=== PATIENT | female | born 1950 | race Caucasian/White ===

== ENCOUNTER 2016-12-11 07:13 | Day surgery (SDC) | payer BC ==
[2016-12-09 12:47] VITALS: BMI 34.7
[~2016-12-11 07:13] MED LIST: LACTATED RINGERS 1,000 ML IV SCH; LIDOCAINE 1% 20 ML VIAL (10MG/ML) FOR IV START INTRADERMA PRN
[2016-12-11 07:25] VITALS: RESP 16; TEMP 98.3
[2016-12-11] MEDS ORDERED: PROPOFOL 10 MG/ML 20 ML VIAL IV ONE (07:34)
[2016-12-11] MEDS ORDERED: LIDOCAINE 1% INJ 10MG/ML (20 ML MDV) ONE (07:34)
--- NOTE | 2016-12-11 07:51 | P.PCN ---
Date of Procedure: 12/11/16 Preoperative Diagnosis: Postoperative Diagnosis: Procedure(s) Performed: BRIEF HISTORY: Patient is a 66-year-old pleasant white female, scheduled for an elective colonoscopy as a part of screening for colorectal neoplasia. She has remote history of ulcerative colitis diagnosed at 45 years ago but has been clinical remission for the last 30 years. Presently on no maintenance medications. PROCEDURE PERFORMED: Colonoscopy. PREOPERATIVE DIAGNOSIS: Screening for colon cancer. IV sedation per Anesthesia. PROCEDURE: After informed consent was obtained, the patient, was brought into the endoscopy unit. IV sedation was administered by Anesthesia under continuous monitoring. Digital rectal examination was normal. Initially the Olympus CF- 160 flexible video colonoscope was then inserted in the rectum, gradually advanced into the cecum without any difficulty. Careful examination was performed as the scope was gradually being withdrawn. Ileocecal valve and the appendiceal orifice were visualized and appeared normal. Prep was excellent. Mucosa of the cecum, ascending colon, transverse colon, descending colon, sigmoid colon, and rectum appeared normal. Retroflexion was performed in the rectum and no lesions were seen. The patient tolerated the procedure well. IMPRESSION: Normal-appearing colon from rectum to cecum with no evidence of colitis or colorectal neoplasia. RECOMMENDATIONS: Findings of this examination were discussed with the patient as well as a family. She was advised to have a repeat screening colonoscopy in 5 years because of history of ulcerative colitis. Implants: Indications for Procedure: Operative Findings: Description of Procedure:
[2016-12-11 08:12] VITALS: BP 121/75; PULSE 74
== END 2016-12-11 08:26 | disposition home or self-care (01) ==
LOC: ORWHC2ENDO 07:13
PROVIDERS: ATTEND Internal Medicine Gastroenterology
DX: Z12.11 Encounter for screening for malignant neoplasm of colon (principal); I10 Essential (primary) hypertension; K21.9 Gastro-esophageal reflux disease without esophagitis; E07.9 Disorder of thyroid, unspecified; Z79.899 Other long term (current) drug therapy
CPT/HCPCS: J2001; J2704; G0121

== ENCOUNTER → 2020-09-19 | Outpatient (CLI) | payer MEDICARE, BC | END | disposition home or self-care (01) | LOC: LABPAT 13:32 | PROVIDERS: ATTEND Orthopaedic Surgery | DX: Z01.818 Encounter for other preprocedural examination (principal); M16.11 Unilateral primary osteoarthritis, right hip | CPT/HCPCS: 36415; 86850; 86900; 86901 ==

== ENCOUNTER 2020-09-23 05:43 | Day surgery (SDC) | payer MEDICARE, BC ==
[2020-09-16 15:47] VITALS: BMI 32.3
[~2020-09-23 05:43] MED LIST changes: +ACETAMINOPHEN TAB 500 MG TAB PO PRN; +GABAPENTIN 300 MG CAP PO PRN; -LACTATED RINGERS 1,000 ML IV SCH; -LIDOCAINE 1% 20 ML VIAL (10MG/ML) FOR IV START INTRADERMA PRN; +MELOXICAM 7.5 MG TAB PO PRN; +TRANEXAMIC ACID 1,000 MG in SODIUM CHLORIDE 0.9% 100 ML IVPB PRN
[2020-09-23] MEDS ORDERED: ONDANSETRON 4 MG/2 ML VIAL ONE ×2 (05:45→09:48)
[2020-09-23 06:20] VITALS: RESP 16
[2020-09-23] MEDS: LACTATED RINGERS 1,000 ML IV SCH ×2 (06:20→12:50)
[2020-09-23] MEDS ORDERED: LIDOCAINE 1% INJ 10MG/ML (20 ML MDV) ONE (06:56)
[2020-09-23] MEDS ORDERED: SODIUM CHLORIDE 0.9% 100 ML BAG ONE (06:56)
[2020-09-23] MEDS ORDERED: TRANEXAMIC ACID 1,000 MG/10 ML VIAL ONE (06:56)
[2020-09-23] MEDS ORDERED: SODIUM CHLORIDE 0.9% IRRIG 1,000 ML BTL IRRIGATION ONE (06:56)
[2020-09-23] MEDS ORDERED: PROPOFOL 10 MG/ML 20 ML VIAL IV ONE (06:56)
[2020-09-23] MEDS ORDERED: ROCURONIUM 10 MG/ML (5 ML VIAL) IV ONE (06:56)
[2020-09-23] MEDS ORDERED: HEPARIN SODIUM,PORCINE 10,000 UNIT/ML 1 ML VIAL ONE (06:56)
[2020-09-23] MEDS ORDERED: fentaNYL (PF) 50 MCG/ML 2 ML AMP ONE (06:56)
[2020-09-23] MEDS ORDERED: KETOROLAC 15 MG/ML 1 ML VIAL ONE (06:56)
[2020-09-23] MEDS ORDERED: NEOSTIGMINE 1 MG/ML 10 ML VIAL ONE (06:56)
[2020-09-23] MEDS ORDERED: HYDROmorphone (PF) 1 MG/ML ONE (06:56)
[2020-09-23] MEDS ORDERED: MIDAZOLAM 2 MG/2 ML VIAL ONE (06:56)
[2020-09-23] MEDS ORDERED: HYDROmorphone 0.2 MG/1 ML SYRINGE IVP PRN (07:04)
[2020-09-23] MEDS ORDERED: NALOXONE 0.4 MG/ML 1 ML VIAL IV PRN (07:04)
[2020-09-23] MEDS ORDERED: HYDROmorphone 0.5 MG/0.5 ML SYRINGE IVP PRN ×2 (07:04)
[2020-09-23] MEDS ORDERED: HYDROcodone/APAP 7.5-325MG 1 EACH TAB PO PRN ×2 (07:06)
[2020-09-23] MEDS ORDERED: SODIUM CHLORIDE 0.9% 1,000 ML IV SCH (07:15)
[2020-09-23] MEDS ORDERED: ceFAZolin 3,000 MG in SODIUM CHLORIDE 0.9% IRRIGATIO 3,000 ML IRRIGATION ONE (07:22)
[2020-09-23] MEDS: ROPIVACAINE/EPI/CLONIDINE/KET 50 ML SYRINGE MISCELLANE PRN ×2 (07:36→07:59)
--- NOTE | 2020-09-23 08:23 | P.OP ---
Date of Procedure: 09/23/20 Preoperative Diagnosis: Severe osteoarthritis right hip Postoperative Diagnosis: Severe osteoarthritis right hip Procedure(s) Performed: Right total hip arthroplasty direct anterior approach Implants: [employer] Polarstem standard size 5 [employer] R3, 3 hole hemispherical acetabular shell, 52 mm [employer] Reflection 6.5 mm cancellus screw, 20 mm 2 [employer] R3, XLPE 20 acetabular liner [employer] Oxinium femoral head 36 m, -3 All components were press-fit. The articulation is Oxinium on polyethylene. Anesthesia: GETA Surgeon: Nitin Klein Choir Singer #1: Melanie Santiago Estimated Blood Loss (ml): 200 (65 mL returned with Cell Saver) Pathology: other (Femoral head) Condition: stable Disposition: PACU Indications for Procedure: After failure of conservative treatment we discussed the surgical and nonsurgical treatment options at length. Patient wishes to proceed with a total hip arthroplasty with a direct anterior approach. Complications specific to this procedure were discussed at length, including but not limited to infection, leg length discrepancy, dislocation, nerve injury, and fracture. Covid-19 was also discussed at length with the patient, and they are aware of the current policies and procedures. The patient was given the option of delaying surgery, but they elect to proceed knowing these risks. Patient is aware of all these complications and informed consent was obtained Operative Findings: The operative findings are consistent with severe osteoarthritis of the right hip Description of Procedure: Patient was seen and evaluated in the preoperative area and the consent was reviewed. The operative site was marked with a skin marker. The patient was then brought to the operating room and given preoperative antibiotics intravenously. 1 g of Tranexamic acid was also given intravenously. A general anesthetic was administered by the anesthesia department. The patient was then placed on the Wilberforce table with the bony prominences well-padded. The hip area was then prepped with a ChloraPrep solution and draped in the usual sterile fashion. A universal timeout was then performed, which confirmed the patient's name, surgical site, ALLERGIES, and procedure being performed on the consent. Next the incision site was located at 1 cm distall to the anterior superior iliac spine along the flexion crease of the right hip. The skin and subcutaneous tissues were sharply incised. Incision was carefully dissected down to the fascia overlying the tensor fascia suni muscle. This fascia was then incised in line with the incision. Care was taken to stay laterally in order to avoid injuring the lateral femoral cutaneous nerve. Next, using blunt finger dissection, the tensor fascia suni muscle was dissected off its investing fascia. The muscle was then carefully retracted laterally with a cobra retractor over the lateral neck of the femur. Next, the circumflex vessels were identified and cauterized using the AquaMantis device. The anterior hip capsule was then exposed. The capsule was then opened and an inverted T fashion. Cobra retractors were then placed intracapsularly. The retractors were maintained intracapsular throughout the procedure. The proximal femur was then visualized. A small amount of traction was placed on the leg. The femoral neck was then osteotomized appropriate level above the lesser trochanter. A small wedge of bone was then removed from the remaining femoral head. Next, using a corkscrew the femoral head was removed from the acetabulum. On gross visual inspection, the femoral head had complete loss of articular cartilage and multiple periarticular osteophytes. The femoral head was then measured. Attention was then turned to the acetabulum. The acetabulum was exposed and any remaining labrum was excised. Sequential reaming of the acetabulum was performed using fluoroscopic guidance until there was a good bed of bleeding cancellus bone. When the appropriate size was reached, a trial was then placed. The position and fit of the trial was checked with fluoroscopy. The trial was then removed. Then, using fluoroscopic guidance, the final implant was impacted at 20 of anteversion and 40 of abduction, and fully seated in the acetabulum. 2 screws were then placed in the acetabulum. Again fluoroscopy was used to check position of the screws. Next, the liner was then impacted, with a 20 elevated liner located in the anterior superior quadrant. Component locking was confirmed. Attention was then directed to the femur. With the aid of the Wilberforce table, the femur was externally rotated to approximately 130, extended, and adducted under the opposite leg. A side hook was then placed under the proximal femur, and the side hook elevator was used to elevate the proximal femur while releasing the capsule. Retractors were then placed. A capsular release was performed, as well as a release of the conjoined tendon, which afforded excellent visualization of the proximal femur. Next, a box osteotome was used to lateralize the proximal femur. A steam box hand was then used to locate the femoral canal. Sequential broaching was then performed with appropriate size which afforded excellent fixation in the proximal femur. A trial was then placed with appropriate head and neck, and the hip was gently reduced with the aid of the Wilberforce table. Fluoroscopy was then used to check position of the components, as well as to ensure equal leg lengths. The hip was then gently dislocated and the trials were then removed. Final implants were then impacted and the hip was again reduced. Final fluoroscopic x-rays confirmed that the components were in anatomic position, as well as equal leg lengths. The hip was also taken through range of motion, and found to be stable. The hip was then copiously irrigated with antibiotic solution with pulsatile lavage. The hip was then irrigated with Irrisept solution. The soft tissues were then injected with a ropivacaine solution, which consisted of 246.25 mg of ropivacaine, 0.5 mg of epinephrine, 30 mg of Toradol, 80 g of clonidine, and 48.45 mL of sterile water, for a total of 100 mL of fluid injected. A second dose of 1 g of Tranexamic acid was also given intravenously. Any blood collected by Cell Saver was then returned to the patient at this time. The fascia was then closed with 2-0 strata fix suture. The subcutaneous tissue was closed with 3-0 Vicryl. The subcuticular tissue was closed with 3-0 strata fix suture. The skin was then closed with Exofin skin glue. After the glue and dried, and Optifoam silver impregnated dressing was applied. The patient was then transferred to the recovery room in stable condition. The child care assistant YAZMIN Vega was required due to the complexity of surgery, and the need for skilled surgical specialist for positioning, draping, exposure, retraction, and closure of the wound.
[2020-09-23 08:37] VITALS: TEMP 98.2
[2020-09-23] MEDS ORDERED: ONDANSETRON 4 MG/2 ML VIAL IVP ONE (09:50)
--- NOTE | 2020-09-23 10:16 | XR ---
Right hip HISTORY: Status post right hip arthroplasty Single frontal view of the right hip Patient is status post right hip arthroplasty. There is anatomic alignment. Lucency is present in the soft tissues. IMPRESSION: Orthopedic follow-up.
--- NOTE | 2020-09-23 11:04 | XR ---
Limited right hip, fluoroscopy history: Hip replacement 20 seconds fluoroscopy time supplied to the referring clinician, 2 intraoperative images document the procedure
[2020-09-23 14:31] VITALS: BP 116/78; PULSE 78
== END 2020-09-23 15:00 | disposition home health service (06) ==
LOC: OR 05:43
PROVIDERS: ATTEND Orthopaedic Surgery
DX: M16.11 Unilateral primary osteoarthritis, right hip (principal); I10 Essential (primary) hypertension; E07.9 Disorder of thyroid, unspecified; E78.5 Hyperlipidemia, unspecified; K21.9 Gastro-esophageal reflux disease without esophagitis; Z79.890 Hormone replacement therapy; Z79.899 Other long term (current) drug therapy; Z87.891 Personal history of nicotine dependence; Z88.8 Allergy status to other drugs, medicaments and biological substances
CPT/HCPCS: 27130; 97116; 97161; 86891; 88300; 73501; C1776; J2250; J1644; J2710; J0690 ×2; J2405; J2001; J3010; J1170; J1885; J2704; 36415; 86850; 86900; 86901

== ENCOUNTER → 2021-10-13 | Outpatient (CLI) | payer MEDICARE, BC ==
[2021-10-13 13:16] VITALS: BP 149/76; PULSE 108; RESP 16; TEMP 97.7; BMI 34.7
--- NOTE | 2022-01-09 10:44 | P.HPBAR ---
Bariatric H&P - History & Physicial H&P Date: 10/13/21 History & Physicial: Visit/CC: gastric sleeve f/u Patient initial contact: Initial weight: Initial weight in pounds: Height: 5 ft 9 in Initial BMI: Last weight: Current weight: 106.685 kg Current weight in pounds: 235.20 Current BMI: 34.7 [place] body weight (based on NIH guidelines): 65.771 kg Excess body weight loss: The patient is a 71 year-old F who presents for Bariatric Assessment. Patient presents today for bariatric follow-up. Her weight has been stable. She had some mild issues with GERD. She denies any dysphagia Past Medical History Past Medical History: GERD/Reflux, Hyperlipidemia, Hypertension, Osteoarthritis (OA), Thyroid Disorder History of Any Multi-Drug Resistant Organisms: None Reported Past Surgical History: Bariatric Surgery, Section, Hysterectomy, Joint Replacement Additional Past Surgical History / Comment(s): GASTRIC SLEEVE, RT TOTAL KNEE, Rt total hip, rt cataract Past Anesthesia/Blood Transfusion Reactions: No Reported Reaction Past Psychological History: No Psychological Hx Reported Smoking Status: Former smoker Past Alcohol Use History: Occasional Additional Past Alcohol Use History / Comment(s): SMOKED 15 YEARS, 1/2 PPD, QUIT 1996. Past Drug Use History: None Reported - Past Family History Mother Family Medical History: No Reported History Surgical - Exam Vital Signs Temp Pulse Resp BP 97.7 F 108 H 16 149/76 10/13/21 13:13 10/13/21 13:13 10/13/21 13:13 10/13/21 13:13 - General well developed, well nourished - Eyes PERRL - ENT normal pinna - Neck no masses - Respiratory normal expansion - Cardiovascular Rhythm: regular - Abdomen Abdomen: soft, non tender Bariatric Assessment & Plan Plan: Resolving morbid obesity. Patient's GERD is minimal will be observed. She'll follow-up in 4 weeks. Bariatric Checklist Checklist: Plan: Checklist: EGD: 1. Hiatal hernia: 2. H. Pylori: HgbA1c: Vitamin D: Smoking: Former smoker Primary care physician referral: [facility] Psychiatry clearance: Cardiology clearance: Sleep study: Diet journal: VTE risk score: VTE risk level: Rehab needs at discharge:
== END ==
LOC: BARWHC3 13:00
PROVIDERS: ATTEND Surgery
DX: E66.01 Morbid (severe) obesity due to excess calories (principal); E78.5 Hyperlipidemia, unspecified; K21.9 Gastro-esophageal reflux disease without esophagitis; I10 Essential (primary) hypertension; M19.90 Unspecified osteoarthritis, unspecified site; Z98.84 Bariatric surgery status; Z87.891 Personal history of nicotine dependence; Z68.34 Body mass index [BMI] 34.0-34.9, adult; Z88.1 Allergy status to other antibiotic agents
CPT/HCPCS: 99211

== ENCOUNTER → 2021-10-15 | Outpatient (CLI) | payer MEDICARE, BC ==
--- NOTE | 2021-10-15 16:18 | FL ---
EXAMINATION TYPE: FL barium swallow DATE OF EXAM: 10/15/2021 COMPARISON: None HISTORY: Dysphagia and burning TECHNIQUE: A single contrast esophagram study is performed. FINDINGS: Contrast passes through the esophagus without intraluminal or extramural abnormality. Multiple tertiary contractions are evident within the distal esophagus. Moderate size hiatal hernia i s present. Some reflux into the hernia is evident during this exam. Fluoroscopy time: 52 seconds. Images: 18 IMPRESSIONS: 1. Moderate size hiatal hernia. Reflux and hiatal hernia is evident during the examination. 2. 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
== END | disposition home or self-care (01) ==
LOC: RADUSWWP 11:51
PROVIDERS: ATTEND Surgery
DX: K44.9 Diaphragmatic hernia without obstruction or gangrene (principal); K22.89 Other specified disease of esophagus; K21.9 Gastro-esophageal reflux disease without esophagitis
CPT/HCPCS: 74220

== ENCOUNTER 2021-10-16 09:11 | Day surgery (SDC) | payer MEDICARE, BC ==
[2021-10-15 09:44] VITALS: BMI 33.2
[2021-10-16] MEDS ORDERED: LIDOCAINE 1% (10MG/ML) FOR IV START INTRADERMA PRN (09:37)
[2021-10-16] MEDS ORDERED: LACTATED RINGERS 1,000 ML IV SCH (09:37)
[2021-10-16 09:50] VITALS: TEMP 98.3
[2021-10-16] MEDS ORDERED: LIDOCAINE 1% INJ 10MG/ML (20 ML MDV) ONE (10:51)
[2021-10-16] MEDS ORDERED: PROPOFOL 10 MG/ML 20 ML VIAL IV ONE (10:51)
--- NOTE | 2021-10-16 10:54 | P.GSHP ---
History of Present Illness H&P Date: 10/16/21 Chief Complaint: GERD Is a 8-year-old female who presents today for EGD. She's had issues with GERD. Past Medical History Past Medical History: GERD/Reflux, Hyperlipidemia, Hypertension, Osteoarthritis (OA), Thyroid Disorder History of Any Multi-Drug Resistant Organisms: None Reported Past Surgical History: Bariatric Surgery, Section, Hysterectomy, Joint Replacement Additional Past Surgical History / Comment(s): GASTRIC SLEEVE, RT TOTAL KNEE, Rt total hip, rt cataract, EGD, COLONOSCOPY Past Anesthesia/Blood Transfusion Reactions: No Reported Reaction Smoking Status: Former smoker - Past Family History Mother Family Medical History: No Reported History Medications and Allergies Home Medications Medication Instructions Recorded Confirmed Type Levothyroxine Sodium [Levo-T] 125 mcg PO DAILY 12/09/16 10/16/21 History Omeprazole [PriLOSEC] 40 mg PO HS 12/09/16 10/16/21 History Acetaminophen [Tylenol Arthritis] 650 mg PO DIRECTED PRN 09/16/20 10/16/21 History hydroCHLOROthiazide 50 mg PO DAILY 09/16/20 10/16/21 History Alpha Lipoic Acid 600 mg PO BID 10/13/21 10/16/21 History Cholecalciferol (Vitamin D3) 5,000 units PO DAILY 10/13/21 10/16/21 History [Vitamin D3 (125 MCG = 5,000 IU)] rOPINIRole HCL [Requip] 0.25 mg PO HS 10/13/21 10/16/21 History Amitriptyline HCl [Elavil] 50 mg PO HS 10/15/21 10/16/21 History Allergies Allergy/AdvReac Type Severity Reaction Status Date / Time nitrofurantoin Allergy red, hot Verified 10/16/21 09:51 [From Macrobid] skin and achy bones Surgical - Exam Vital Signs Temp Pulse Resp BP Pulse Ox 98.3 F 106 H 18 138/76 95 10/16/21 09:48 10/16/21 09:48 10/16/21 09:48 10/16/21 09:48 10/16/21 09:48 - General well developed, well nourished, no distress - Eyes PERRL - ENT normal pinna - Neck no masses - Respiratory normal expansion - Cardiovascular Rhythm: regular - Abdomen Abdomen: soft, non tender Assessment and Plan Assessment: GERD. We'll perform EGD
--- NOTE | 2021-10-16 11:01 | P.OP ---
Date of Procedure: 10/16/21 Preoperative Diagnosis: GERD Postoperative Diagnosis: Antral gastritis Large hiatal hernia Esophagitis Procedure(s) Performed: EGD Anesthesia: MAC Surgeon: Davidson Rojo Pathology: other (Antrum, esophagus) Condition: stable Disposition: PACU Description of Procedure: The patient's placed on the endoscopy table in the lateral position. She received IV sedation. The gastro-/oropharynx passed in the esophagus and stomach. Scope was then placed through the pylorus. The first and second portion duodenum appeared normal. Scope was then brought back the antrum this. Mildly inflamed. A biopsies performed. The scope was then retroflexed and remainder stomach appeared normal. There was a large hiatal hernia. The GE junction was at 37 cm. The distal esophagus appeared mildly inflamed. A biopsies performed. The proximal esophagus appeared normal. Scope withdrawn for patient.
[2021-10-16 11:15] VITALS: RESP 16
[2021-10-16 11:25] VITALS: BP 133/85; PULSE 96
== END 2021-10-16 11:55 | disposition home or self-care (01) ==
LOC: ORWHC2ENDO 09:11
PROVIDERS: ATTEND Surgery
DX: K21.9 Gastro-esophageal reflux disease without esophagitis (principal); K29.50 Unspecified chronic gastritis without bleeding; E78.5 Hyperlipidemia, unspecified; I10 Essential (primary) hypertension; M19.90 Unspecified osteoarthritis, unspecified site; E07.9 Disorder of thyroid, unspecified; Z98.84 Bariatric surgery status; Z87.891 Personal history of nicotine dependence; Z79.890 Hormone replacement therapy; Z79.899 Other long term (current) drug therapy; Z88.3 Allergy status to other anti-infective agents; Z98.891 History of uterine scar from previous surgery; Z90.710 Acquired absence of both cervix and uterus; Z96.651 Presence of right artificial knee joint; Z96.641 Presence of right artificial hip joint; Z98.41 Cataract extraction status, right eye
CPT/HCPCS: 88305; 88342; 43239; J2001; J2704

== ENCOUNTER → 2021-10-27 | Outpatient (CLI) | payer MEDICARE, BC ==
[2021-10-27 15:05] VITALS: BP 140/80; PULSE 80; TEMP 98.2; BMI 34.8
--- NOTE | 2021-10-27 15:40 | P.HPBAR ---
Bariatric H&P - History & Physicial H&P Date: 10/27/21 History & Physicial: Visit/CC: egd follow up Patient initial contact: Initial weight: Initial weight in pounds: Height: 5 ft 9 in Initial BMI: Last weight: Current weight: 107.048 kg Current weight in pounds: 236.00 Current BMI: 34.8 [place] body weight (based on NIH guidelines): 65.771 kg Excess body weight loss: The patient is a 71 year-old F who presents for Bariatric Assessment. Patient presents today for follow-up. Patient is a complete of GERD. Her EGD shows evidence of a hiatal hernia. Past Medical History Past Medical History: GERD/Reflux, Hyperlipidemia, Hypertension, Osteoarthritis (OA), Thyroid Disorder History of Any Multi-Drug Resistant Organisms: None Reported Past Surgical History: Bariatric Surgery, Section, Hysterectomy, Joint Replacement Additional Past Surgical History / Comment(s): GASTRIC SLEEVE, RT TOTAL KNEE, Rt total hip, rt cataract, EGD, COLONOSCOPY Past Anesthesia/Blood Transfusion Reactions: No Reported Reaction Smoking Status: Former smoker - Past Family History Mother Family Medical History: No Reported History Surgical - Exam Vital Signs Temp Pulse BP 98.2 F 80 140/80 10/27/21 14:33 10/27/21 14:33 10/27/21 14:33 - General well developed, well nourished, no distress - Eyes PERRL - ENT normal pinna - Neck no masses - Respiratory normal expansion - Cardiovascular Rhythm: regular - Abdomen Abdomen: soft, non tender Bariatric Assessment & Plan Plan: GERD related to hiatal hernia. Patient will be scheduled for laparoscopic repair of her hiatal hernia. Bariatric Checklist Checklist: Plan: Checklist: EGD: 1. Hiatal hernia: 2. H. Pylori: HgbA1c: Vitamin D: Smoking: Former smoker Primary care physician referral: Shayy Psychiatry clearance: Cardiology clearance: Sleep study: Diet journal: VTE risk score: VTE risk level: Rehab needs at discharge:
== END ==
LOC: BARWHC3 13:14
PROVIDERS: ATTEND Surgery
DX: Z01.818 Encounter for other preprocedural examination (principal); K21.9 Gastro-esophageal reflux disease without esophagitis; K44.9 Diaphragmatic hernia without obstruction or gangrene; E78.5 Hyperlipidemia, unspecified; I10 Essential (primary) hypertension; M19.90 Unspecified osteoarthritis, unspecified site; Z98.84 Bariatric surgery status; Z87.891 Personal history of nicotine dependence; Z88.1 Allergy status to other antibiotic agents
CPT/HCPCS: 99211

== ENCOUNTER 2021-12-08 07:32 | Observation (INO) | payer MEDICARE, BC ==
[~2021-12-08 07:32] MED LIST changes: -ACETAMINOPHEN TAB 500 MG TAB PO PRN; +DEXAMETHASONE SOD PHOSPHATE 4 MG/ML 1 ML VIAL IV ONE; -GABAPENTIN 300 MG CAP PO PRN; +HYDROmorphone 0.5 MG/0.5 ML SYRINGE IVP PRN; +LIDOCAINE 1% (10MG/ML) FOR IV START INTRADERMA PRN; -MELOXICAM 7.5 MG TAB PO PRN; +METOCLOPRAMIDE 5 MG/ML 2 ML VIAL IVP PRN; +ONDANSETRON 4 MG/2 ML VIAL IVP ONE; -TRANEXAMIC ACID 1,000 MG in SODIUM CHLORIDE 0.9% 100 ML IVPB PRN
[2021-12-08] MEDS: LACTATED RINGERS 1,000 ML IV SCH (08:13)
[2021-12-08] MEDS ORDERED: HEPARIN SODIUM,PORCINE/PF 5,000 UNIT/0.5 ML SYRINGE SQ ONE (08:19)
[2021-12-08] MEDS ORDERED: HEPARIN SODIUM,PORCINE 5,000 UNIT/ML 1 ML VIAL SQ ONE (08:30)
--- NOTE | 2021-12-08 08:36 | P.GSHP ---
History of Present Illness H&P Date: 12/08/21 Chief Complaint: GERD Is a 71-year-old female with complaints of GERD. Patient is has been refractory medical management. Patient has undergone workup found have hiatal hernia. She returns today for laparoscopic repair. Patient reversed surgery including gastric injury, bleeding, scarring and recurrent GERD symptoms Past Medical History Past Medical History: GERD/Reflux, Hyperlipidemia, Hypertension, Osteoarthritis (OA), Thyroid Disorder Additional Past Medical History / Comment(s): hiatal hernia History of Any Multi-Drug Resistant Organisms: None Reported Past Surgical History: Bariatric Surgery, Section, Hysterectomy, Joint Replacement Additional Past Surgical History / Comment(s): GASTRIC SLEEVE, RT TOTAL KNEE, Rt total hip, rt cataract removed, EGD, COLONOSCOPY Past Anesthesia/Blood Transfusion Reactions: No Reported Reaction Past Psychological History: No Psychological Hx Reported Smoking Status: Former smoker Past Alcohol Use History: Occasional Additional Past Alcohol Use History / Comment(s): SMOKED 15 YEARS, 1/2 PPD, QUIT 1996. Past Drug Use History: None Reported - Past Family History Mother Family Medical History: No Reported History Medications and Allergies Home Medications Medication Instructions Recorded Confirmed Type Levothyroxine Sodium [Levo-T] 125 mcg PO DAILY 12/09/16 12/05/21 History Omeprazole [PriLOSEC] 40 mg PO HS 12/09/16 12/05/21 History hydroCHLOROthiazide 25 mg PO DAILY 09/16/20 12/05/21 History Alpha Lipoic Acid 600 mg PO BID 10/13/21 12/05/21 History Cholecalciferol (Vitamin D3) 5,000 units PO DAILY 10/13/21 12/05/21 History [Vitamin D3 (125 MCG = 5,000 IU)] rOPINIRole HCL [Requip] 0.25 mg PO HS 10/13/21 12/05/21 History Amitriptyline HCl [Elavil] 50 mg PO HS 10/15/21 12/05/21 History Rosuvastatin [Crestor] 20 mg PO DAILY 12/05/21 12/05/21 History Allergies Allergy/AdvReac Type Severity Reaction Status Date / Time nitrofurantoin Allergy red, hot Verified 12/05/21 11:45 [From Macrobid] skin and achy bones Surgical - Exam Vital Signs Temp Pulse Resp BP Pulse Ox 97.4 F L 91 20 138/63 96 12/08/21 08:05 12/08/21 08:05 12/08/21 08:05 12/08/21 08:05 12/08/21 08:05 - General well developed, well nourished, no distress - Eyes PERRL - ENT normal pinna - Neck no masses - Respiratory normal expansion - Cardiovascular Rhythm: regular - Abdomen Abdomen: soft, non tender Results - Labs 12/08/21 08:13 Diabetes panel 12/08/21 Range/Units 08:13 Potassium 3.5 (3.5-5.1) mmol/L Pituitary panel 12/08/21 Range/Units 08:13 Potassium 3.5 (3.5-5.1) mmol/L Adrenal panel 12/08/21 Range/Units 08:13 Potassium 3.5 (3.5-5.1) mmol/L Assessment and Plan Assessment: GERD. We'll perform laparoscopic hiatal hernia repair.
[2021-12-08] MEDS ORDERED: ROCURONIUM 10 MG/ML (5 ML VIAL) IV ONE (09:00)
[2021-12-08] MEDS ORDERED: PHENYLEPHRINE-0.9% NACL SYG 1,000 MCG/10 ML SYRINGE ONE (09:00)
[2021-12-08] MEDS ORDERED: fentaNYL (PF) 50 MCG/ML 2 ML AMP ONE (09:00)
[2021-12-08] MEDS ORDERED: KETOROLAC 15 MG/ML 1 ML VIAL ONE (09:00)
[2021-12-08] MEDS ORDERED: SUCCINYLCHOLINE CHLORIDE 100 MG/5 ML SYR IV ONE (09:00)
[2021-12-08] MEDS ORDERED: NEOSTIGMINE 1 MG/ML 10 ML VIAL ONE (09:00)
[2021-12-08] MEDS ORDERED: GLYCOPYRROLATE 0.2 MG/ML 2 ML VIAL ONE (09:00)
[2021-12-08] MEDS ORDERED: LIDOCAINE 2% INJ 20 MG/ML (2 ML VIAL) ONE (09:00)
[2021-12-08] MEDS ORDERED: MIDAZOLAM 2 MG/2 ML VIAL ONE (09:00)
[2021-12-08] MEDS ORDERED: PROPOFOL 10 MG/ML 20 ML VIAL IV ONE (09:00)
[2021-12-08] MEDS ORDERED: BUPIVACAINE (PF) 0.5% 30 ML VIAL SQ ONE (09:22)
--- NOTE | 2021-12-08 10:56 | P.OP ---
Date of Procedure: 12/08/21 Preoperative Diagnosis: GERD Postoperative Diagnosis: GERD Procedure(s) Performed: Laparoscopic repair of hiatal hernia Anesthesia: KISHAN Surgeon: Davidson Rojo Estimated Blood Loss (ml): 25 Pathology: none sent Condition: stable Disposition: PACU Description of Procedure: The patient was placed on the operating table in the supine position. The patient received general anesthesia. And was placed in dorsal lithotomy position. The patient was prepped and draped in the usual sterile fashion. The skin incision sites were anesthetized with 1% local Xylocaine. The skin was incised in the left periumbilical area and then using a blade less 5 mm trocar under direct visualization panel cavity was entered. After adequate insufflation the laparoscope was then placed into the peritoneal cavity. Next a 5 mm trochars placed in the right epigastric position. Another 5 millimeter trocar the right lateral position. Another 5 millimeter trocar in the left lateral position a 5 mm trocar is placed in the left epigastric position. And then the initial 5 mm trocar was exchanged for a 10 mm trocar. A transversus abdominis plane block was performed in 4 quadrants using 1% local Xylocaine. The left lateral lobe liver was retracted. There were adhesions to the liver. These were lysed with sharp dissection. The patient had a previous sleeve gastrectomy. The adhesions to the diaphragm were lysed using sharp dissection and the Harmonic scissors. The gaye were dissected. And then the hiatal hernia was visualized. A portion of stomach appeared to be above the diaphragm. The stomach was dissected free and brought back down into the peritoneal cavity. The fascial defect was then closed with 2-0 Ethibond suture. The hiatus was closed with 3 sutures. The. Be no injury to the stomach or esophagus. At this point the abdomen was irrigated there is no bleeding seen. Trochars withdrawn. The skin was closed interrupted 3-0 Monocryl suture.
[2021-12-08] MEDS ORDERED: HYDROmorphone 1 MG/ML 1 ML SYRINGE IVP PRN (10:57)
[2021-12-08] MEDS ORDERED: ONDANSETRON 4 MG/2 ML VIAL IVP PRN (10:57)
[2021-12-08] MEDS ORDERED: LACTATED RINGERS 1,000 ML IV ONE (14:25)
[2021-12-08 16:01] LABS: Basophils % (A) 0 %; Eosinophils # (A) 0.1 k/uL (0-0.7); Eosinophils % (A) 0 %; HCT 40.9 % (34.0-46.0); HGB 12.5 gm/dL (11.4-16.0); Lymphocytes # (A) 0.4 k/uL (1.0-4.8); Lymphocytes % (A) 4 %; MCH 28.4 pg (25.0-35.0); MCHC 30.6 g/dL (31.0-37.0); MCV 92.6 fL (80.0-100.0); Monocytes # (A) 0.1 k/uL (0-1.0); Monocytes % (A) 1 %; Neutrophils # (A) 9.9 k/uL (1.3-7.7); Neutrophils % (A) 94 %; Platelet Count 228 k/uL (150-450); RBC 4.42 m/uL (3.80-5.40); RDW 15.1 % (11.5-15.5); WBC 10.5 k/uL (3.8-10.6)
[2021-12-08 16:14] LABS: African American GFR (CKD) 78 (>60 ml/min/1.73 sqM); Anion Gap 9 mmol/L; Blood Urea Nitrogen 25 mg/dL (7-17); Calcium 9.3 mg/dL (8.4-10.2); Carbon Dioxide 33 mmol/L (22-30); Chloride 96 mmol/L (98-107); Glucose 153 mg/dL (74-99); Non-African American GFR(CKD) 68 (>60 ml/min/1.73 sqM); Potassium 3.6 mmol/L (3.5-5.1); Sodium 138 mmol/L (137-145)
[2021-12-08] MEDS: D5-0.45% NACL WITH KCL 20MEQ/L 1,000 ML IV SCH (17:03)
[2021-12-08 20:31] VITALS: RESP 16
[2021-12-09] MEDS: D5-0.45% NACL WITH KCL 20MEQ/L 1,000 ML IV SCH ×2 (00:57→10:53)
[2021-12-09 05:20] VITALS: BP 109/68; PULSE 95; TEMP 97.7
[2021-12-09] MEDS: LACTATED RINGERS 1,000 ML IV SCH (06:23)
[2021-12-09] MEDS ORDERED: ENOXAPARIN 40 MG/0.4 ML SYRINGE SQ SCH (09:00)
[2021-12-09] MEDS ORDERED: HYDROcodone/APAP 5-325MG 1 EACH TAB PO PRN (11:50)
--- NOTE | 2021-12-09 11:55 | P.DS ---
Providers Date of admission: 12/08/21 07:32 Expected date of discharge: 12/09/21 Attending physician: Davidson Villatoro Primary care physician: Sol Schrader Hospital Course: Discharge diagnosis 1. GERD status post Laparoscopic repair of hiatal hernia Hospital course This is a 71-year-old female with complaints of GERD. She was found to have hiatal hernia. She is status post endoscopic repair of hiatal hernia. Patient is tolerating her niece and clear liquid diet. She reports her pain is controlled. She is up and ambulating. She is afebrile. She is stable for discharge. Patient seen and examined with Dr. villatoro Physician Telephone Technician note has been reviewed by physician. Signing provider agrees with the documented findings, assessment, and plan of care. Patient Condition at Discharge: Stable Plan - Discharge Summary Discharge Rx Participant: Yes New Discharge Prescriptions: New HYDROcodone/APAP 5-325MG [Shafer 5-325] 1 tab PO Q6HR PRN 3 Days #12 tab PRN Reason: Pain Continue Omeprazole [PriLOSEC] 40 mg PO HS Levothyroxine Sodium [Levo-T] 125 mcg PO DAILY hydroCHLOROthiazide 25 mg PO DAILY Cholecalciferol (Vitamin D3) [Vitamin D3 (125 MCG = 5,000 IU)] 5,000 units PO DAILY rOPINIRole HCL [Requip] 0.25 mg PO HS Alpha Lipoic Acid 600 mg PO BID Amitriptyline HCl [Elavil] 50 mg PO HS Rosuvastatin [Crestor] 20 mg PO DAILY Discharge Medication List Levothyroxine Sodium [Levo-T] 125 mcg PO DAILY 12/09/16 [History] Omeprazole [PriLOSEC] 40 mg PO HS 12/09/16 [History] hydroCHLOROthiazide 25 mg PO DAILY 09/16/20 [History] Alpha Lipoic Acid 600 mg PO BID 10/13/21 [History] Cholecalciferol (Vitamin D3) [Vitamin D3 (125 MCG = 5,000 IU)] 5,000 units PO DAILY 10/13/21 [History] rOPINIRole HCL [Requip] 0.25 mg PO HS 10/13/21 [History] Amitriptyline HCl [Elavil] 50 mg PO HS 10/15/21 [History] Rosuvastatin [Crestor] 20 mg PO DAILY 12/05/21 [History] HYDROcodone/APAP 5-325MG [Shafer 5-325] 1 tab PO Q6HR PRN 3 Days #12 tab 12/09/21 [Rx] Follow up Appointment(s)/Referral(s): Davidson Villatoro MD [STAFF PHYSICIAN] - 1 Week Activity/Diet/Wound Care/Special Instructions: No driving while taking Shafer No lifting over 10 pounds You may shower. No soaking or tub baths for 2 weeks Very light activity until you are reevaluated at your follow up appointment with your surgeon Discharge Disposition: HOME SELF-CARE
--- NOTE | 2021-12-09 12:14 | CDI ---
Documentation Clarification Form Date: 12/09/2021 11:46:25 AM From: Amie Valles RN, CCDS Admit Date: 12/08/2021 07:32:00 AM Patient Name: Shaylee Gudino Visit Number: [id number] Discharge Date: ATTENTION: The Clinical Documentation Specialists (CDI) and [facility] Coding Staff appreciate your assistance in clarifying documentation. Please respond to the clarification below the line at the bottom and electronically sign. The CDI & [facility] Coding staff will review the response and follow-up if needed. Please note: Queries are made part of the Legal Health Record. If you have any questions, please contact the author of this message via ITS. Dr. Davidson Rojo There is documentation in the operative note on 12/08/21 of adhesions to the liver and diaphragm which were lysed using sharp dissection and Harmonic scissors. Additional clarification is requested for the extent of the adhesion and time used to complete. History/Risk Factors: GERD, hiatal hernia Clinical Indicators: 71-year-old female present for elective repair of hiatal hernia. The operative note has there were adhesions to the liver. These were lysed with sharp dissection. The adhesions to the diaphragm were lysed using sharp dissection and the Harmonic scissors. Treatment: Laparoscopic repair of hiatal hernia Lysis of adhesions to left lateral liver lobe and diaphragm (per operative note) To accurately capture procedure. Can you please further clarify lysis of adhesion to left lateral lobe liver and the diaphragm? [ xx ] Lysis of adhesion to liver and diaphragm was extensive or significant (further specify if known) [ ] Lysis of adhesion to liver and diaphragm were not extensive or significant [ ] Other, please specify [ ] Unable to determine (Template Last Revised: September 2020) MTDD
== END 2021-12-09 12:35 | disposition home or self-care (01) ==
LOC: 2ORMAIN 07:32 → INTOOBSV 07:32 → 5NMEDONC 14:17
PROVIDERS: ADMIT Surgery; ATTEND Surgery
DX: K44.9 Diaphragmatic hernia without obstruction or gangrene (principal); K21.9 Gastro-esophageal reflux disease without esophagitis; K66.0 Peritoneal adhesions (postprocedural) (postinfection); I10 Essential (primary) hypertension; E78.5 Hyperlipidemia, unspecified; E07.9 Disorder of thyroid, unspecified; M19.90 Unspecified osteoarthritis, unspecified site; Z79.890 Hormone replacement therapy; Z79.899 Other long term (current) drug therapy; Z88.1 Allergy status to other antibiotic agents; Z87.891 Personal history of nicotine dependence; Z98.84 Bariatric surgery status; Z90.710 Acquired absence of both cervix and uterus; Z98.891 History of uterine scar from previous surgery; Z96.651 Presence of right artificial knee joint; Z96.641 Presence of right artificial hip joint; Z98.41 Cataract extraction status, right eye; Z98.890 Other specified postprocedural states
CPT/HCPCS: 43281; 64488; 80048; 84132; 85025; J2250; J1644; J1100; J2710; J0690 ×2; J2405; J1650; J3010; J1885; J2370; J0330; J2704; J2001

== ENCOUNTER → 2021-12-22 | Outpatient (CLI) | payer MEDICARE, BC ==
[2021-12-22 12:54] VITALS: BP 147/68; PULSE 113; RESP 12; TEMP 98.4; BMI 33.7
--- NOTE | 2021-12-22 15:04 | P.HPBAR ---
Bariatric H&P - History & Physicial H&P Date: 12/22/21 History & Physicial: Visit/CC: post surgical Patient initial contact: Initial weight: Initial weight in pounds: Height: 5 ft 9 in Initial BMI: Last weight: Current weight: 103.873 kg Current weight in pounds: 229.00 Current BMI: 33.7 [place] body weight (based on NIH guidelines): 65.771 kg Excess body weight loss: The patient is a 71 year-old F who presents for Bariatric Assessment. Patient presents today for Benjamin fall. She's been quite well. Her current weight is 229 pounds. She previously weight 236 pounds. She has had improvement in her GERD. Past Medical History Past Medical History: GERD/Reflux, Hyperlipidemia, Hypertension, Osteoarthritis (OA), Thyroid Disorder Additional Past Medical History / Comment(s): hiatal hernia History of Any Multi-Drug Resistant Organisms: None Reported Past Surgical History: Bariatric Surgery, Section, Hysterectomy, Joint Replacement Additional Past Surgical History / Comment(s): GASTRIC SLEEVE, RT TOTAL KNEE, Rt total hip, rt cataract removed, EGD, COLONOSCOPY Past Anesthesia/Blood Transfusion Reactions: No Reported Reaction Past Psychological History: No Psychological Hx Reported Smoking Status: Former smoker Past Alcohol Use History: Occasional Additional Past Alcohol Use History / Comment(s): SMOKED 15 YEARS, 1/2 PPD, QUIT 1996. Past Drug Use History: None Reported - Past Family History Mother Family Medical History: No Reported History Surgical - Exam Vital Signs Temp Pulse Resp BP 98.4 F 113 H 12 147/68 12/22/21 12:51 12/22/21 12:51 12/22/21 12:51 12/22/21 12:51 - General well developed, well nourished - Eyes PERRL - ENT normal pinna - Respiratory normal expansion - Abdomen Abdomen: soft, non tender Bariatric Assessment & Plan Plan: [place] repair of hiatal hernia. Patient's GERD is improved. She'll follow-up in 4 weeks. Bariatric Checklist Checklist: Plan: Checklist: EGD: 1. Hiatal hernia: 2. H. Pylori: HgbA1c: Vitamin D: Smoking: Former smoker Primary care physician referral: [facility] Psychiatry clearance: Cardiology clearance: Sleep study: Diet journal: VTE risk score: VTE risk level: Rehab needs at discharge:
== END ==
LOC: BARWHC3 12:40
PROVIDERS: ATTEND Surgery
DX: K44.9 Diaphragmatic hernia without obstruction or gangrene (principal); K21.9 Gastro-esophageal reflux disease without esophagitis; E78.5 Hyperlipidemia, unspecified; I10 Essential (primary) hypertension; M19.90 Unspecified osteoarthritis, unspecified site; Z98.890 Other specified postprocedural states; Z98.84 Bariatric surgery status; Z87.891 Personal history of nicotine dependence; Z88.1 Allergy status to other antibiotic agents
CPT/HCPCS: 99211

== ENCOUNTER → 2022-09-29 | Outpatient (CLI) | payer MEDICARE, BC ==
[2022-09-29 22:37] LABS: HCT 42.9 % (37.2-46.3); HGB 13.4 g/dL (12.0-15.0); MCH 31.3 pg (27.0-32.0); MCHC 31.2 g/dL (32.0-37.0); MCV 100.2 fL (80.0-97.0); Mean Platelet Volume 10.6 fL (9.5-12.2); NRBC Per 100 WBC 0 /100 WBCS (0.0-0.0); Platelet Count 238 X 10*3/uL (140-440); RBC 4.28 X 10*6/uL (4.10-5.20); RDW 14.3 % (11.5-14.5); WBC 6.84 X 10*3/uL (4.50-10.00)
[2022-09-30 01:26] LABS: African American GFR (CKD) 69.1 (60.0-200.0); Anion Gap 12.4 mmol/L (10.00-18.00); Blood Urea Nitrogen 23.7 mg/dL (9.0-27.0); Carbon Dioxide 30.3 mmol/L (20.0-27.5); Non-African American GFR(CKD) 59.6 (60.0-200.0); Potassium 3.8 mmol/L (3.5-5.5)
== END | disposition home or self-care (01) ==
LOC: LABPAT 11:07
PROVIDERS: ATTEND Internal Medicine Clinical Cardiac Electrophysiology
DX: Z01.812 Encounter for preprocedural laboratory examination (principal); I47.1 Supraventricular tachycardia
CPT/HCPCS: 80051; 82565; 84520; 85027

== ENCOUNTER 2022-10-01 13:08 | Day surgery (SDC) | payer MEDICARE, BC ==
[~2022-10-01 13:08] MED LIST changes: -DEXAMETHASONE SOD PHOSPHATE 4 MG/ML 1 ML VIAL IV ONE; -HYDROmorphone 0.5 MG/0.5 ML SYRINGE IVP PRN; +LACTATED RINGERS 1,000 ML IV SCH; -METOCLOPRAMIDE 5 MG/ML 2 ML VIAL IVP PRN; -ONDANSETRON 4 MG/2 ML VIAL IVP ONE
[2022-10-01 13:46] VITALS: RESP 18
[2022-10-01] MEDS ORDERED: SODIUM CHLORIDE 0.9% 1,000 ML IV ONE (13:46)
[2022-10-01] MEDS ORDERED: ceFAZolin 1,000 MG VIAL ONE (15:05)
[2022-10-01] MEDS ORDERED: SODIUM CHLORIDE 0.9% 100 ML BAG ONE (15:05)
[2022-10-01] MEDS ORDERED: fentaNYL (PF) 50 MCG/ML 2 ML AMP ONE (15:05)
[2022-10-01] MEDS ORDERED: MIDAZOLAM 2 MG/2 ML VIAL ONE (15:05)
[2022-10-01] MEDS ORDERED: ISOPROTERENOL 250 MCG/1.25 ML SYR IV ONE (15:05)
[2022-10-01] MEDS ORDERED: diphenhydrAMINE 50 MG/ML 1 ML VIAL ONE (15:05)
[2022-10-01] MEDS ORDERED: PROPOFOL 10 MG/ML 20 ML VIAL IV ONE (15:05)
[2022-10-01] MEDS ORDERED: LIDOCAINE 1% INJ 10MG/ML (20 ML MDV) ONE ×2 (15:53→17:34)
[2022-10-01] MEDS ORDERED: LIDOCAINE 1% INJ 10MG/ML (30 ML VIAL-PF) SQ ONE ×2 (15:59→17:32)
--- NOTE | 2022-10-01 18:14 | P.EPPROC ---
- EP Procedure Note Electrophysiology Procedure Note: Diagnosis Episode of syncope while sitting Recurrent palpitations and episodes of SVT Right bundle branch block and 20 EKG Final diagnosis Mildly prolonged HV interval 60 ms Frequent PACs and short runs of atrial tachycardia, irregular of different activation patterns No sustained SVT induced No sustained atrial fibrillation Right bundle branch block pattern normal RI interval Details Patient was brought to the EP lab in a fasting state. Written informed consent was obtained prior to the procedure. Venous sheaths were placed in the right femoral vein and diagnostic catheters were positioned in the high right atrium, coronary sinus, His bundle area and right ventricle A detailed diagnostic studies performed on and off Isuprel Sinus node recovery times at 600, 500 and 400 ms were 744, 808 164 ms AV node Wenckebach block 270 ms VA Wenckebach block 470 ms Atrial extra stimulation, burst stimulation and straight pacing performed from the high right atrium, proximal [place]in sinus and distal [place] sinus Burst stimulation and straight pacing performed from the left ventricle No sustained arrhythmias induced The HV interval was mildly prolonged ranged from 60-67 ms RI interval is normal Frequent PACs of very activation patterns, short runs of nonsustained atrial tachycardia of varying activation patterns, irregular noted No sustained arrhythmias No SVT No evidence for AV node reentry No clear cardiac disorganized atrial fibrillation induced Venous sheaths removed and Vascade closure device applied Plan line discussed with the patient and her In view of the HV interval close to 70 ms and irregular atrial tachycardia, a decision was made to implant a loop monitor for further monitoring especially since she's had a syncopal spell while sitting Stop Elavil Stop hydrochlorothiazide Reduce dose of metoprolol to 50 mg once daily
--- NOTE | 2022-10-01 18:15 | P.EPPROC ---
- EP Procedure Note Electrophysiology Procedure Note: Loop monitor implant Primary physicians: Office Equipment Technician: Dr. Reyez Indication: Syncope, frequent nonsustained A. tach, irregular, high atrial tachycardia burden Patient was brought to the EP lab in a fasting state. Written informed consent was obtained prior to the procedure. The left pectoral area was prepped and draped per protocol. Intravenous antibiotic was administered preoperatively. A subcutaneous Loop monitor was implanted successfully and the wound was closed per protocol. The device was programmed to detect significant lizzie- arrhythmic and tachy-arrhythmic events, per protocol. Device and programming details: Syncope protocol
[2022-10-01] MEDS: FLECAINIDE 50 MG TAB PO SCH (20:29)
[2022-10-01] MEDS ORDERED: ATORVASTATIN 40 MG TAB PO SCH (21:00)
[2022-10-01] MEDS ORDERED: PANTOPRAZOLE 40 MG TABLET PO SCH (21:00)
[2022-10-02] MEDS ORDERED: LEVOTHYROXINE 125 MCG TAB PO SCH (06:30)
[2022-10-02 06:44] VITALS: BP 114/78; TEMP 97.5
[2022-10-02] MEDS ORDERED: METOPROLOL SUCCINATE (ER) 50 MG TAB.ER.24H PO SCH (09:00)
[2022-10-02] MEDS: FLECAINIDE 50 MG TAB PO SCH (09:39)
[2022-10-02 10:49] VITALS: PULSE 91
--- NOTE | 2022-10-02 10:49 | P.DS ---
Providers Attending physician: Dany Reyez Primary care physician: [facility] Course: Patient was admitted for evaluation of recurrent palpitations and near syncope She underwent a diagnostic EP study which revealed an HV interval of between 60- 67 seconds, right bundle branch block pattern, normal MI interval, frequent PACs and runs of atrial tachycardia but from different foci, with different activation patterns No sustained SVT or atrial fibrillation induced Thereafter she underwent implantation of loop monitor for long-term syncope monitoring, evaluation for A. fib burden or/atrial tachycardia burden and monitoring for any AV block She is doing well today. Mild soreness at the Loop insertion site No chest discomfort no dizziness no lightheadedness Normal heart sounds Normal breath sounds Impression Recurrent PACs-very frequent, recurrent runs of nonsustained atrial tachycardia/atrial fibrillation, brief Varying activation patterns of these nonsustained arrhythmias, high burden of these nonsustained arrhythmias Right bundle-branch block normal MI interval HV interval mildly prolonged Suggest Very low-dose flecainide for suppression of atrial arrhythmias Monitor for any bradycardia arrhythmias. AV block Monitor A. fib burden If she fails flecainide then I would proceed with in A. fib ablation/atrial tachycardia ablation She will need anticoagulation at least for 4 weeks prior to that and for at least 2-3 months thereafter Send TSH and free T4 today Follow up in the office in a week and then once again in about a month Patient Condition at Discharge: Stable Plan - Discharge Summary Discharge Rx Participant: No New Discharge Prescriptions: New RX: Flecainide [Tambocor] 25 mg PO Q12HR #90 tablet RX: Metoprolol Succinate [Toprol XL] 50 mg PO DAILY #90 tab Discontinued RX: hydroCHLOROthiazide 50 mg PO DAILY Metoprolol Succinate (ER) [Toprol Xl] 50 mg PO BID RX: Amitriptyline HCl [Elavil] 50 mg PO HS No Action RX: Omeprazole [PriLOSEC] 20 mg PO HS RX: Levothyroxine Sodium [Levo-T] 125 mcg PO DAILY RX: rOPINIRole HCL [Requip] 0.25 mg PO BID RX: Rosuvastatin [Crestor] 20 mg PO HS Discharge Medication List RX: Levothyroxine Sodium [Levo-T] 125 mcg PO DAILY 12/09/16 [History] RX: Omeprazole [PriLOSEC] 20 mg PO HS 12/09/16 [History] RX: rOPINIRole HCL [Requip] 0.25 mg PO BID 10/13/21 [History] RX: Rosuvastatin [Crestor] 20 mg PO HS 12/05/21 [History] RX: Flecainide [Tambocor] 25 mg PO Q12HR #90 tablet 10/01/22 [Rx] RX: Metoprolol Succinate [Toprol XL] 50 mg PO DAILY #90 tab 10/01/22 [Rx] Follow up Appointment(s)/Referral(s): Dany Reyez MD [STAFF PHYSICIAN] - 1 Week (Device clinic follow-up in one week for suture removal Follow-up with Dr. Reyez in 2 months) Activity/Diet/Wound Care/Special Instructions: Post EP study - Ablation instructions 1. Keep access sites dry for 2 days. 2. No heavy lifting or straining for 2 days. 3. Avoid bending the hips repeatedly for 2 days. 4. You may go up and down stairs slowly Call if the following is noted 1. Bleeding, increasing swelling or pain at the access sites. 2. Increasing chest discomfort, especially upon taking a deep breath. 3. Increasing shortness of breath, at rest or with exertion. 4. Undue cough / phlegm 5. Difficulty or pain while swallowing. 6. Pain or change in color in the extremities. 7. Fever, chills, rigors. 8. Increasing headache or neurologic symptoms. 9. Dizziness, fainting, palpitations Keep loop implant site dry for 7 days Start flecainide 25 mg twice daily. Each tablet is 50 mg. Therefore half a tablet twice daily Reduce metoprolol to succinate to 50 mg once daily in the morning Stop hydrochlorothiazide Stop Elavil Discharge Disposition: HOME SELF-CARE
[2022-10-02 12:06] LABS: T4, Free (Free Thyroxine) 1.61 ng/dL (0.78-2.19)
== END 2022-10-02 12:43 | disposition home or self-care (01) ==
LOC: CATHEP 13:08 → 6NMEDSUR 17:40 → CATHEP 10-02 12:43
PROVIDERS: ATTEND Internal Medicine Clinical Cardiac Electrophysiology
DX: I45.10 Unspecified right bundle-branch block (principal); I47.1 Supraventricular tachycardia; I48.91 Unspecified atrial fibrillation; R07.89 Other chest pain; Z79.899 Other long term (current) drug therapy
CPT/HCPCS: 93623; 93620; 33285; 84439; 84443; C1894; C1769 ×2; C1760; C1764; C1730; J2001

== ENCOUNTER → 2023-02-02 | Outpatient (CLI) | payer MEDICARE, BC ==
--- NOTE | 2023-02-02 19:36 | MR ---
EXAMINATION TYPE: MR brain wo/w con DATE OF EXAM: 02/02/2023 COMPARISON: NONE HISTORY: 72-year-old female R42, R55, I63.9, Lightheaded, vertigo. TECHNIQUE: Multiplanar, multisequence images of the brain and brainstem were acquired before and aft er administration of 10 mL IV Gadavist. Diffusion weighted imaging is performed. FINDINGS: No evidence for acute infarction, hemorrhage, mass, mass effect, midline shift, herniation, effacemen t of basal cisterns, or extra-axial fluid collection. The ventricles and sulci are age-appropriate. Major intracranial flow voids are intact. T2/FLAIR weighted sequences show mild scattered bright signal foci particularly in the deep white mat ter regions of posterior hemispheres, numbering less than 5 on each side. Additional patchy change wi thin the left paramedian dominick. Midline structures demonstrate normal morphology. The craniocervical junction is normal. Post contrast images demonstrate no evidence of pathologic enhancement. Dural venous sinuses are pat ent. There is mild mucosal thickening within the ethmoid air cells. Globes are intact. IMPRESSION: No acute intracranial abnormality seen. Minimal to mild burden of chronic small vessel ischemic disea se. No enhancing intracranial lesions.
== END | disposition home or self-care (01) ==
LOC: RADMRIMAIN 10:25
PROVIDERS: ATTEND Nurse Practitioner
DX: I67.82 Cerebral ischemia (principal); I63.9 Cerebral infarction, unspecified; R55 Syncope and collapse
CPT/HCPCS: 70553; A9585

== ENCOUNTER 2023-09-17 11:45 | Day surgery (SDC) | payer MEDICARE, BC ==
[2023-09-16 10:35] VITALS: BMI 34.0
[2023-09-17] MEDS: LACTATED RINGERS 1,000 ML IV SCH (12:32)
[2023-09-17] MEDS: LIDOCAINE 1% (10MG/ML) FOR IV START INTRADERMA ONE (12:48)
[2023-09-17] MEDS ORDERED: PROPOFOL 10 MG/ML 20 ML VIAL IV ONE (13:15)
[2023-09-17] MEDS ORDERED: LIDOCAINE 1% INJ 10MG/ML (20 ML MDV) ONE (13:15)
--- NOTE | 2023-09-17 13:38 | P.PCN ---
Date of Procedure: 09/17/23 Procedure(s) Performed: Brief history: Patient is a pleasant 73-year-old white female scheduled for an elective upper endoscopy as well as colonoscopy as a part of evaluation of long-standing history of fERD and ulcerative colitis diagnosed at age 36. She is in clinical remission. Procedure performed: Esophagogastroduodenoscopy with biopsy Colonoscopy Preoperative diagnosis: Long-standing history of GERD Long-standing history of ulcerative colitis Anesthesia: MAC Procedure: After informed consent was obtained from the patient was brought into the endoscopy unit and IV sedation was administered by anesthesia under continuous monitoring. Initially upper endoscopy was done. The Olympus GF 160 video endoscope was inserted inserted into the mouth and esophagus intubated without any difficulty and was gradually advanced into the stomach and duodenum and carefully examined. The bulb and second part of the duodenum appeared normal. The scope was then withdrawn into the stomach adequately insufflated with air and upon careful examination the antrum had mild gastritis and biopsies were done from this area. There was evidence of gastric sleeve surgery noted. The mucosa in the gastric sleeve appeared normal. The scope was then withdrawn into the esophagus. Small to moderate size hiatal hernia noted. The GE junction was located at 40 cm to the incisors. It appeared regular with no erythema erosions or ulcerations. Rest of the esophagus appeared normal. Patient tolerated the procedure well. At this time the patient continued to remain sedation. Initial digital rectal examination was normal. Olympus CF 160 video colonoscope was then inserted into the rectum and gradually advanced to the cecum without any difficulty. Careful examination was performed as the scope was gradually being withdrawn. The prep was excellent. The cecum, ascending colon, transverse colon, descending colon, sigmoid colon and rectum appeared normal. Random biopsies were done from cecum to rectum at every 10 cm into well to rule out dysplasia. Retroflexion was performed in the rectum and no lesions were noted. Patient tolerated the procedure well. Impression: 1. Upper endoscopy revealed evidence of gastric sleeve surgery, mild gastritis and small hiatal hernia 2. Colonoscopy was within normal limits with no evidence of colorectal neoplasia Recommendations: Findings of this examination were discussed with the patient as well as her family. She was advised to follow with the biopsy results. Continue with Prilosec 20 mg daily and follow antrum reflux measures. Recommend repeat colonoscopy in 5 years because of history of ulcerative colitis
[2023-09-17 13:45] VITALS: RESP 14; TEMP 98.7
[2023-09-17 14:20] VITALS: BP 117/77; PULSE 73
== END 2023-09-17 14:12 | disposition home or self-care (01) ==
LOC: ORWHC2ENDO 11:45
PROVIDERS: ATTEND Internal Medicine Gastroenterology
DX: K29.50 Unspecified chronic gastritis without bleeding (principal); K21.9 Gastro-esophageal reflux disease without esophagitis; K44.9 Diaphragmatic hernia without obstruction or gangrene; K51.90 Ulcerative colitis, unspecified, without complications; I48.91 Unspecified atrial fibrillation; I10 Essential (primary) hypertension; E78.5 Hyperlipidemia, unspecified; E07.9 Disorder of thyroid, unspecified; Z98.84 Bariatric surgery status; Z79.890 Hormone replacement therapy; Z79.899 Other long term (current) drug therapy; Z98.890 Other specified postprocedural states
CPT/HCPCS: 88305; 43239; J2001; J2704; G0121

== ENCOUNTER → 2023-11-11 | Outpatient (CLI) | payer MEDICARE, BC ==
[2023-11-11 13:58] LABS: INR 0.9 (<1.2); Partial Thromboplastin Time 22.6 sec (22.0-30.0); Prothrombin Time 10.2 sec (10.0-12.5)
[2023-11-11 19:17] LABS: HCT 40.6 % (37.2-46.3); HGB 13.2 g/dL (12.0-15.0); MCH 31.8 pg (27.0-32.0); MCHC 32.5 g/dL (32.0-37.0); MCV 97.8 FL (80.0-97.0); Mean Platelet Volume 10.6 FL (9.5-12.2); NRBC Per 100 WBC 0 X 10*3/uL (0.00-0.01); Platelet Count 288 X 10*3/uL (140-440); RBC 4.15 X 10*6/uL (4.10-5.20); RDW 14.8 % (11.5-14.5)
[2023-11-11 19:36] LABS: ALT 19 U/L (8-44); AST 22 U/L (13-35); Albumin 4.7 g/dL (3.8-4.9); Albumin/Globulin Ratio 1.74 Ratio (1.60-3.17); Alkaline Phosphatase 91 U/L (41-126); Blood Urea Nitrogen 26.4 mg/dL (9.0-27.0); Calcium 10.6 mg/dL (8.7-10.3); Carbon Dioxide 30.4 mmol/L (21.6-31.8); Chloride 98 mmol/L (96-109); Globulin 2.7 g/dL (1.6-3.3); Glucose 101 mg/dL (70-110); Potassium 3.8 mmol/L (3.5-5.5); Sodium 141 mmol/L (135-145); Total Bilirubin 0.4 mg/dL (0.3-1.2); Total Protein 7.4 g/dL (6.2-8.2)
== END | disposition home or self-care (01) ==
LOC: LABPAT 13:02
PROVIDERS: ATTEND Orthopaedic Surgery
DX: Z01.812 Encounter for preprocedural laboratory examination (principal); Z22.322 Carrier or suspected carrier of Methicillin resistant Staphylococcus aureus
CPT/HCPCS: 36415; 80053; 85027; 85610; 85730; 87070

== ENCOUNTER 2023-11-30 05:43 | Day surgery (SDC) | payer MEDICARE, BC ==
[~2023-11-30 05:43] MED LIST changes: -LACTATED RINGERS 1,000 ML IV SCH; +TRANEXAMIC 1,000 MG/100ML-NACL 1,000 MG in SALINE 1 100ML.BAG IVPB PRN
[2023-11-30] MEDS ORDERED: ONDANSETRON 4 MG/2 ML VIAL ONE (05:47)
[2023-11-30] MEDS: ONDANSETRON 4 MG/2 ML VIAL IVP ONE (05:54)
[2023-11-30] MEDS: ACETAMINOPHEN TAB 500 MG TAB PO PRN (05:54)
[2023-11-30] MEDS: MELOXICAM 7.5 MG TAB PO PRN (05:54)
[2023-11-30] MEDS: LACTATED RINGERS 1,000 ML IV SCH (05:54)
[2023-11-30] MEDS: DEXAMETHASONE SOD PHOSPHATE 4 MG/ML 1 ML VIAL IVP ONE (05:54)
[2023-11-30] MEDS: GABAPENTIN 300 MG CAP PO PRN (05:54)
[2023-11-30] MEDS: MIDAZOLAM 2 MG/2 ML VIAL IVP ONE (06:43)
[2023-11-30] MEDS: fentaNYL (PF) 50 MCG/ML 2 ML AMP IVP ONE (06:43)
[2023-11-30] MEDS ORDERED: MIDAZOLAM 2 MG/2 ML VIAL ONE (06:50)
[2023-11-30] MEDS ORDERED: ROPIVACAINE 5 MG/ML 30 ML VIAL ONE (06:50)
[2023-11-30] MEDS ORDERED: PROPOFOL 10 MG/ML 20 ML VIAL IV ONE (06:50)
[2023-11-30] MEDS ORDERED: TRANEXAMIC 1,000 MG/100ML-NACL PREMIX BAG ONE (06:50)
[2023-11-30] MEDS ORDERED: PHENYLEPHRINE 10 MG/ML VIAL ONE (06:50)
[2023-11-30] MEDS ORDERED: fentaNYL (PF) 50 MCG/ML 2 ML AMP ONE (06:50)
[2023-11-30] MEDS ORDERED: HYDROmorphone 0.5 MG/0.5 ML SYRINGE IVP PRN ×3 (07:00→08:45)
[2023-11-30] MEDS: ceFAZolin 1,000 MG in SODIUM CHLORIDE 0.9% 1,000 ML IRRIGATION ONE (07:30)
--- NOTE | 2023-11-30 07:55 | P.ANPRN ---
Procedure Note - Anesthesia - Nerve Block Performed Left Adductor Canal Infusion Time Out Performed: Yes (0642) Date of Procedure: 11/30/23 Procedure Start Time: :43 Procedure Stop Time: 06:48 Location of Patient: PreOp Indication: Acute Post-Operative Pain, Requested by Surgeon Specifically requested for management of pain by DrKezia: Nitin Klein Sedation Type: Sedate with meaningful contact maintained Preparation: Sterile Prep, Sterile Dressing Position: Supine Catheter Depth at Skin (cm): 7 Catheter: Indwelling Needle Types: Pajunk Needle Gauge: 18 Ultrasound used to visualize needle placement: Yes Ultrasound used to observe medication spread: Yes Injectate: 0.5% Ropivacaine (see comment for volume) (20cc) Blood Aspirated: No Pain Paresthesia on Injection Noted: No Resistance on Injection: Normal Image Stored and Saved: Yes Events: Uneventful and Well Tolerated
--- NOTE | 2023-11-30 07:56 | P.ANPRN ---
Procedure Note - Anesthesia - Nerve Block Performed Left iPack Single Time Out Performed: Yes (0642) Date of Procedure: 11/30/23 Procedure Start Time: 06:49 Procedure Stop Time: 06:52 Location of Patient: PreOp Indication: Acute Post-Operative Pain, Requested by Surgeon Specifically requested for management of pain by DrKezia: Nitin Klein Sedation Type: Sedate with meaningful contact maintained Preparation: Sterile Prep Position: Supine Catheter: None Needle Types: Pajunk Needle Gauge: 21 Ultrasound used to visualize needle placement: Yes Ultrasound used to observe medication spread: Yes Injectate: 0.5% Ropivacaine (see comment for volume) (20cc) Blood Aspirated: No Pain Paresthesia on Injection Noted: No Resistance on Injection: Normal Image Stored and Saved: Yes Events: Uneventful and Well Tolerated
--- NOTE | 2023-11-30 08:13 | P.OP ---
Date of Procedure: 11/30/23 Preoperative Diagnosis: severe osteoarthritis left knee Postoperative Diagnosis: severe osteoarthritis left knee Procedure(s) Performed: left total knee arthroplasty Implants: [employer] Journey II CR Oxinium cruciate retaining femoral component size 6, left [employer] Journey nonporous tibial baseplate size 5, left [employer] Journey II, XLPE Deep Dished articular insert, size 12 mm, Size 5-6, left [employer] Cynthia II resurfacing patellar component, oval, 29 mm All components were cemented using Palacos R bone cement The articulation is Oxinium on polyethylene Anesthesia: spinal Surgeon: Nitin Klein Warm In Worker #1: Melanie Santiago Estimated Blood Loss (ml): 40 Pathology: none sent Condition: stable Disposition: PACU Indications for Procedure: The patient's knee is end-stage, and conservative management has failed. The operation of knee replacement has been discussed at length in the office, as well as potential risks and complications. These are inclusive of, but not limited to: Infection, bleeding, scarring, discomfort, stiffness, blood vessel and nerve damage, need for further surgery, failure to relieve symptoms, persistence, recurrence, or worsening of problems, loosening, dislocation, wear, blood clot, pulmonary embolism, , gait dysfunction, stiffness, and other risks as discussed in the office. Patient elects to proceed and the consent form has been signed. Operative Findings: the operative findings are consistent with severe osteoarthritis of the left knee Description of Procedure: The patient was seen in the preoperative area, the consent was reviewed and the operative site was marked with a skin marker. The patient verified the procedure and the operative site. An adductor canal pain catheter and an iPACK block were placed by anesthesia in the preoperative area. The patient was then brought to the operating room and positioned on the operating room table in the supine position. Preoperative antibiotics and a gram of tranexamic acid were given intravenously. A spinal anesthetic was administered by the anesthesia department. Care was taken to make sure that all pressure points were adequately padded. A tourniquet was placed on the upper thigh and the lower extremity was prepped with ChloraPrep and draped in usual sterile fashion. A universal time-out was then performed which confirmed the patient's name, surgical site, ALLERGIES, and consent. The lower extremity was then exsanguinated and tourniquet was inflated to 250 mmHg. A standard anterior midline approach to the knee was performed. The skin and subcutaneous tissue were sharply dissected down to the patellar tendon. A medial parapatellar arthrotomy was then performed. The knee was then extended, the patellar was everted, and the knee was flexed. The infra-patellar fat pad was removed in order to enhance exposure. The anterior horns of both menisci were excised, and a release was performed to the posterior medial aspect of the knee. On gross visual inspection, there was complete loss of articular cartilage in the medial and patellofemoral joint spaces. There was also significant cartilage damage in the lateral compartment. There were multiple periarticular osteophytes globally about the knee which were then removed with a Ronguer. The femoral canal was then opened with the 9.5 mm intramedullary drill. The 8 mm intramedullary belle was then inserted into the femoral canal with the distal femoral cutting guide set for 5 of valgus. The distal femoral cutting block was then pinned in place. The intramedullary belle was then removed, and the distal femur was then cut. The cutting block was then removed and the cut was checked for symmetry. The resected bone was then measured to confirm the appropriate distal femoral resection. Next, the sizing guide was then placed and set for 3 external rotation based off of the epicondylar axis and [place]'s line. Pins were then placed and the drill holes, and the femur was sized with the sizing stylus. The pins were then removed, and the sizing guide was then removed. The spikes of the appropriate size femoral block was then placed into the predrilled holes, and malleted into place. Two 45 mm pins were then placed into the fixation holes on the cutting block. An sharron wing was then used to ensure there would be no notching with the anterior cut. The anterior condyles were cut without notching. The anterior chord cut was then performed, followed by the posterior cut, posterior chamfer cut, and the anterior chamfer cut. The collateral ligaments were protected during the entire process. The cutting block was then removed. Any remaining bone and osteophytes were removed from the femur with a Ronguer. Attention was then directed to the tibia. The remaining ACL was removed with a Ronguer, and the tibia was then gently subluxed forward with a large bent knee retractor. Any remaining menisci were excised. The posterior lateral corner was cauterized in order to coagulate the lateral geniculate artery. The extra medullary tibial cutting guide was then placed, set for the appropriate rotation, slope, and depth of resection. The proximal tibia cutting guide was then pinned in place. Proximal tibia was then cut and sized. A curved osteotome was then used to remove any posterior osteophytes from the distal femur. The femoral trial was placed. A narrow saw blade was then used to remove the anterior intracondylar femoral bone. The CR notch trial was then placed. The tibial trial was placed with the appropriate-sized insert. The knee was able to fully extend and flex to 130 and was stable throughout all range of motion. The knee was then extended and the patella was everted. Patella was then measured, and then using an osteotomy guide, the patella was cut at the appropriate level. The patellar component was sized. The patellar drill guide was placed and the patella was drilled. The patella trial was then placed. The knee was then taken through range of motion with the patella trial and the patella tracked normally using the no thumbs technique. The patella trial was then removed. The knee was then flexed and lug holes were drilled through the femoral trial and the femoral trial was then removed. The tibial was then re- exposed, and the tibial broach guide was then pinned in place after it was set for the appropriate rotation to allow for the most coverage without overhang. The tibia was then reamed and broached. The femoral canal was plugged with autologous bone. The cut surfaces of bone were then irrigated with pulsatile lavage. The knee was also irrigated with Irrisept solution. The components were then opened, the cement was mixed. Cement was placed on the backside of the femoral, tibial, and patellar components. Cement was then applied to the tibial surface and pressurized into the surface using finger pressurization technique. The tibial component was then applied and excess cement was removed after it was impacted securely noted to be flush with the cut surface. In similar fashion, the cement was applied to the cut femoral surface, pressur ized and using finger pressurization the component was impacted in place. Excess cement was removed. The polyethylene spacer was then implanted and locked into position. Patellar component was then applied in a similar technique and the patellar clamp was used to hold patella in place while the cement hardened. The knee was held in full extension while the cement hardened. Once the cement had fully hardened, the knee was reinspected. Any other cement extrusion was removed the final range of motion testing showed range of motion from 0-130 with excellent stability, both medial and laterally and appropriate alignment of the leg. Patella tracked normally. After the cemented hardened, the tourniquet was released and hemostasis was obtained. A second gram of transexamic acid was given intravenously. The knee was again irrigated. The knee was again taken through range of motion and found to be stable throughout all range of motion of 0-130, and the patella tracked normally. The fascia was then closed with 0 Vicryl followed by #2 strata fix suture. The subcutaneous tissue was closed with 3-0 Vicryl and 3-0 strata fix. Exofin glue was used for the skin and placed with the knee in flexion. After the glue had dried, and Optafoam silver impregnated dressing was applied. A lightly compressive dressing was applied using web roll and Tahir wrap. Patient was then transferred to the stretcher and taken to recovery room in stable condition. Sponge and needle counts were correct. The health care assistant YAZMIN Vega was required due the complexity surgery and the need for a skilled medical assistant per diem. She assisted in positioning, draping, retraction, and closure of the wound.
[2023-11-30] MEDS ORDERED: ONDANSETRON 4 MG/2 ML VIAL IVP PRN (08:45)
[2023-11-30] MEDS ORDERED: bisacodyL 10 MG SUPP RECTAL PRN (08:45)
[2023-11-30] MEDS ORDERED: NALOXONE 0.4 MG/ML 1 ML VIAL IV PRN (08:45)
[2023-11-30] MEDS ORDERED: MAGNESIUM HYDROXIDE 2,400 MG/30 ML CUP PO PRN (08:45)
[2023-11-30] MEDS ORDERED: NA PHOS,M-B/NA PHOS,DI-BA 133 ML ENEMA RECTAL PRN (08:45)
[2023-11-30] MEDS: ROPIVACAINE 1,100 MG, SODIUM CHLORIDE 0.9% 500 ML 330 ML, EMPTY PAIN BALL 1 EACH MISCELLANE PRN (09:10)
[2023-11-30] MEDS: LACTATED RINGERS 1,000 ML IV ONE (09:10)
--- NOTE | 2023-11-30 09:16 | XR ---
EXAMINATION TYPE: XR knee limited LT DATE OF EXAM: 11/30/2023 COMPARISON: NONE TECHNIQUE: Two views submitted HISTORY: Post op FINDINGS: There is a prosthetic knee in near anatomic alignment. There is soft tissue edema and soft tissue e mphysema. IMPRESSION: 1. Postoperative change. Appears in near-anatomic alignment
[2023-11-30] MEDS: SODIUM CHLORIDE 0.9% 1,000 ML IV SCH (12:34)
[2023-11-30] MEDS: HYDROcodone/APAP 7.5-325MG 1 EACH TAB PO PRN ×2 (15:44→22:15)
--- NOTE | 2023-11-30 17:51 | P.CONS ---
History of Present Illness - Reason for Consult Consult date: 11/30/23 Medical management Requesting physician: Nitin Klein - Chief Complaint Surgery - History of Present Illness This is a pleasant 73-year-old patient who follows with Dr. Lucas. Chronic stable medical conditions include atrial fibrillation being followed by Dr. Sahil Reyez not on anticoagulation. GERD, hypertension, hyperlipidemia, osteoarthritis, hypothyroid, restless leg syndrome, gastric sleeve. Patient has undergone left total knee arthroplasty. Postprocedure pain is well- controlled. No nausea vomiting. Sitting up in bed. No cardiac symptoms. Review of systems: GEN.: None EYES: None HEENT: None NECK: None RESPIRATORY: None CARDIOVASCULAR: None GASTROINTESTINAL: Reflux e GENITOURINARY: None MUSCULOSKELETAL: Joint pains e LYMPHATICS: None HEMATOLOGICAL: None PSYCHIATRY: None NEUROLOGICAL: None Social history: Used to smoke in the past. Has anywhere from 2-3 drinks on the weekends. . Physical examination: VITAL SIGNS: 97.5, 67, 17, 157 x 88, 96% room air GENERAL: BMI 34.4, sitting in bed awake comfortable. EYES: Pupils equal. Conjunctiva robi l. HEENT: External appearance of nose and ears normal, oral cavity grossly normal. NECK: JVD not raised; masses not palpable. HEART: First and second heart sounds are normal; no edema. LUNGS: Respiratory rate normal; clear to auscultation. ABDOMEN: Soft, nontender, liver spleen not palpable, no masses palpable. PSYCH: Alert and oriented x3; mood and affect robi l. MUSCULOSKELETAL:No Clubbing/cyanosis;muscles-grossly intact. Dressing over the left knee. Evidence of OA NEUROLOGICAL: Cranial nerves grossly intact; no facial asymmetry, power and sensation grossly intact. LYMPHATICS: No lymph nodes palpable in the axilla and neck INVESTIGATIONS, reviewed in the clinical context: November 11, 2023: White count 9.3 hemoglobin 13.2 platelets 288 sodium 141 potassium 3.8 BUN 26.4 creatinine 1 Assessment plan: -Left total knee arthroplasty Aspirin 325 twice daily for DVT prophylaxis. Pain controlled. Received IV cefazolin for infection prophylaxis -Paroxysmal atrial fibrillation, currently in sinus rhythm Flecainide 25 mg every 12. Toprol-XL 50 mg a day -Hypothyroid Levothyroxine 125 mcg a day -GERD Prilosec 20 mg nightly -Essential hypertension Toprol-XL 50 mg a day. Hydrochlorothiazide 50 mg a day. -Chronic insomnia Elavil 50 mg nightly -Restless leg syndrome Requip 0.25 mg twice daily -Primary osteoarthritis Tylenol as needed -Obesity BMI 34.4 Weight loss measures Care was discussed with the patient. Questions answered. Thank Dr. Klein Past Medical History Past Medical History: Atrial Fibrillation, GERD/Reflux, Hyperlipidemia, Hypertension, Osteoarthritis (OA), Thyroid Disorder Additional Past Medical History / Comment(s): palpitations and runs of a fib - no a fib since metoprolol & flecainide, insomnia, RLS History of Any Multi-Drug Resistant Organisms: None Reported Past Surgical History: Bariatric Surgery, Section, Hernia Repair, Hysterectomy, Joint Replacement Additional Past Surgical History / Comment(s): GASTRIC SLEEVE, RT TOTAL KNEE, Rt total hip, bilat. cataract removed, EGD/COLONOSCOPY, hiatal hernia repair, unsuccessful cardiac ablation, loop recorder Past Anesthesia/Blood Transfusion Reactions: No Reported Reaction Additional Past Anesthesia/Blood Transfusion Reaction / Comm: no blood tx Past Psychological History: No Psychological Hx Reported Additional Psychological History / Comment(s): Takes amitriptyline for sleep. Smoking Status: Former smoker Past Alcohol Use History: Occasional Additional Past Alcohol Use History / Comment(s): SMOKED 15 YEARS, 1/2 PPD, QUIT 1997. 5 drinks/week Past Drug Use History: None Reported - Past Family History Mother Family Medical History: No Reported History Additional Family Medical History / Comment(s): in her 90's Father Family Medical History: Myocardial Infarction ([place]) Medications and Allergies Home Medications Medication Instructions Recorded Confirmed Type Levothyroxine Sodium [Levo-T] 125 mcg PO QAM 12/09/16 11/25/23 History Omeprazole [PriLOSEC] 20 mg PO HS 12/09/16 11/25/23 History rOPINIRole HCL [Requip] 0.25 mg PO BID 10/13/21 11/25/23 History Flecainide [Tambocor] 25 mg PO Q12HR #90 tablet 10/01/22 11/25/23 Rx Amitriptyline HCl [Elavil] 50 mg PO HS 09/16/23 11/25/23 History hydroCHLOROthiazide [Hydrodiuril] 50 mg PO QAM 09/16/23 11/25/23 History Acetaminophen Tab [Tylenol Tab] 1,000 mg PO Q6HR PRN 11/25/23 11/30/23 History Inclisiran Sodium [Leqvio] 1 dose SQ Q180D 11/25/23 11/25/23 History Magnesium Oxide [Magnesium] 420 mg PO HS 11/25/23 11/25/23 History Metoprolol Succinate [Toprol XL] 50 mg PO QAM 11/25/23 11/25/23 History Potassium Citrate 99 mg PO HS 11/25/23 11/25/23 History Aspirin 325 mg PO BID #60 tab 11/30/23 Rx HYDROcodone/APAP 7.5-325MG [[place] 1 - 2 tab PO Q6H PRN #32 tab 11/30/23 Rx 7.5-325] Sennosides [Senokot] 2 tab PO DAILY PRN #60 tablet 11/30/23 Rx Allergies Allergy/AdvReac Type Severity Reaction Status Date / Time nitrofurantoin Allergy red, hot Verified 11/30/23 06:13 [From Macrobid] skin and achy bones Physical Exam Vitals: Vital Signs Temp Pulse Resp BP Pulse Ox 11/30/23 13:47 97.5 F L 67 17 157/88 96 11/30/23 12:30 64 18 130/70 99 11/30/23 11:31 60 16 127/71 98 11/30/23 11:00 64 20 115/57 97 11/30/23 10:30 70 20 153/62 98 11/30/23 10:00 62 20 124/65 98 11/30/23 09:27 66 20 116/62 94 L 11/30/23 09:12 64 16 109/62 95 11/30/23 08:57 64 16 107/56 96 11/30/23 08:42 98.0 F 62 16 101/59 99 11/30/23 06:55 69 14 106/59 96 11/30/23 06:02 97.1 F L 69 20 146/73 94 L Intake and Output 11/30/23 11/30/23 11/30/23 06:59 14:59 22:59 Intake Total 200 1851 Output Total 840 Balance 200 1011 Intake: IV 200 1851 Output: Urine 800 Estimated Blood Loss 40 Other: Weight 105.7 kg 105.7 kg
[2023-11-30] MEDS: SENNOSIDES-DOCUSATE SODIUM 1 EACH TAB PO SCH (20:25)
[2023-11-30] MEDS: ASPIRIN 325 MG TAB PO SCH (20:25)
[2023-11-30] MEDS: MAGNESIUM OXIDE 400 MG TAB PO SCH (20:26)
[2023-11-30] MEDS: HYDROmorphone 0.5 MG/0.5 ML SYRINGE IVP PRN (20:26)
[2023-11-30] MEDS: PANTOPRAZOLE 40 MG TABLET PO SCH (20:26)
[2023-11-30] MEDS: FLECAINIDE 50 MG TAB PO SCH (21:29)
[2023-11-30] MEDS: AMITRIPTYLINE HCL 50 MG TAB PO SCH (21:29)
[2023-12-01] MEDS: LEVOTHYROXINE 125 MCG TAB PO SCH (05:54)
[2023-12-01] MEDS: METOPROLOL SUCCINATE (ER) 50 MG TAB.ER.24H PO SCH (08:21)
[2023-12-01 09:23] LABS: Basophils # (A) 0.02 X 10*3/uL (0.00-0.10); Basophils % (A) 0.2 %; Eosinophils # (A) 0.11 X 10*3/uL (0.04-0.35); Eosinophils % (A) 1.4 %; HCT 36.5 % (37.2-46.3); HGB 11.9 g/dL (12.0-15.0); Lymphocytes # (A) 0.78 X 10*3/uL (0.90-5.00); Lymphocytes % (A) 9.7 %; MCH 32.6 pg (27.0-32.0); MCHC 32.6 g/dL (32.0-37.0); Mean Platelet Volume 9.9 FL (9.5-12.2); Monocytes # (A) 0.64 X 10*3/uL (0.20-1.00); NRBC Per 100 WBC 0 X 10*3/uL (0.00-0.01); Neutrophils # (A) 6.43 X 10*3/uL (1.80-7.70); Neutrophils % (A) 80.3 %; Platelet Count 182 X 10*3/uL (140-440); RBC 3.65 X 10*6/uL (4.10-5.20); RDW 14.8 % (11.5-14.5); WBC 8.01 X 10*3/uL (4.50-10.00)
--- NOTE | 2023-12-01 09:45 | P.DS ---
Providers Expected date of discharge: 12/01/23 Attending physician: Nitin Klein Consults: 11/30/23 08:45 Consult Physician Routine Consulting Provider: Gary Marsh Consult Reason/Comments: medical management Do you want consulting provider notified?: Yes Primary care physician: Doron Lucas - Discharge Diagnosis(es) (1) Osteoarthritis of left knee Current Visit: Yes Status: Acute (2) Status post total left knee replacement Current Visit: Yes Status: Acute Hospital Course: This is a 73-year-old female with known history of degenerative arthritis of the left knee. The patient presented for evaluation as an outpatient. After discussion and consideration patient elects to proceed with total knee arthroplasty. The patient is seen preoperatively by Dr. Klein and medically cleared for surgery by their primary care physician. Patient is admitted to [facility] on 11/30/2023 for total knee arthroplasty. The procedure is performed without complication or sequelae. The patient is doing well postoperatively. Labs and vital signs are stable on day of discharge. On day of discharge patient's knee incision is healing well. There is minimal erythema. There is no drainage noted at this time. There is minimal soft tiss ue swelling to the knee. Patient has full foot and ankle motion without difficulty or pain. Calf is soft and nontender to palpation. Neurovascular status to the left lower extremity is intact. Patient is discharged home in good condition. Please see med rec for accurate list of home medications. Plan - Discharge Summary Discharge Rx Participant: Yes New Discharge Prescriptions: New HYDROcodone/APAP 7.5-325MG [[place] 7.5-325] 1 - 2 tab PO Q6H PRN #32 tab PRN Reason: Pain Sennosides [Senokot] 2 tab PO DAILY PRN #60 tablet PRN Reason: Constipation Aspirin 325 mg PO BID #60 tab Ibuprofen 800 mg PO Q8H 30 Days #90 tab No Action Omeprazole [PriLOSEC] 20 mg PO HS Levothyroxine Sodium [Levo-T] 125 mcg PO QAM Flecainide [Tambocor] 25 mg PO Q12HR #90 tablet hydroCHLOROthiazide [Hydrodiuril] 50 mg PO QAM Magnesium Oxide [Magnesium] 420 mg PO HS Acetaminophen Tab [Tylenol Tab] 1,000 mg PO Q6HR PRN PRN Reason: Pain rOPINIRole HCL [Requip] 0.25 mg PO BID Amitriptyline HCl [Elavil] 50 mg PO HS Metoprolol Succinate [Toprol XL] 50 mg PO QAM Inclisiran Sodium [Leqvio] 1 dose SQ Q180D Potassium Citrate 99 mg PO HS Discharge Medication List Levothyroxine Sodium [Levo-T] 125 mcg PO QAM 12/09/16 [History] Omeprazole [PriLOSEC] 20 mg PO HS 12/09/16 [History] rOPINIRole HCL [Requip] 0.25 mg PO BID 10/13/21 [History] Flecainide [Tambocor] 25 mg PO Q12HR #90 tablet 10/01/22 [Rx] Amitriptyline HCl [Elavil] 50 mg PO HS 09/16/23 [History] hydroCHLOROthiazide [Hydrodiuril] 50 mg PO QAM 09/16/23 [History] Acetaminophen Tab [Tylenol Tab] 1,000 mg PO Q6HR PRN 11/25/23 [History] Inclisiran Sodium [Leqvio] 1 dose SQ Q180D 11/25/23 [History] Magnesium Oxide [Magnesium] 420 mg PO HS 11/25/23 [History] Metoprolol Succinate [Toprol XL] 50 mg PO QAM 11/25/23 [History] Potassium Citrate 99 mg PO HS 11/25/23 [History] Aspirin 325 mg PO BID #60 tab 11/30/23 [Rx] HYDROcodone/APAP 7.5-325MG [[place] 7.5-325] 1 - 2 tab PO Q6H PRN #32 tab 11/30/23 [Rx] Sennosides [Senokot] 2 tab PO DAILY PRN #60 tablet 11/30/23 [Rx] Ibuprofen 800 mg PO Q8H 30 Days #90 tab 12/01/23 [Rx] Follow up Appointment(s)/Referral(s): [facility] [NON-STAFF] - As Needed (*Please call [facility] to arrange delivery of the Continuous Passive Motion (CPM) machine. ) [facility] [NON-STA[facility]] - 1-2 Days ([facility] will call you to schedule your in home physical therapy visits. ) Nitin Klein DO [Doctor of Osteopathic Medicine] - 2 Weeks Activity/Diet/Wound Care/Special Instructions: Weightbearing as tolerated with a walker. CPM 5-6h daily as tolerated. Leave dressing intact. Dressing may be removed by home care nurse or by patient in 7 days. Then change dressing twice daily until follow up. May shower with initial dressing intact and after removal. If dressing become saturated, please remove. Recommend use of compression stockings daily until follow up to help prevent swelling and blood clots. May remove at night before sleeping. Please take aspirin 325mg twice daily for 30 days to prevent blood clots. Please follow up with [facility] and call with any questions or concerns, . Discharge Disposition: HOME WITH HOME HEALTH SERVICES
[2023-12-01 14:27] VITALS: BP 130/72; PULSE 69; RESP 17; TEMP 98
--- NOTE | 2023-12-01 15:45 | P.PN ---
Progress Note - Text Progress Note Date: 12/01/23 - Chief Complaint Surgery - History of Present Illness This is a pleasant 73-year-old patient who follows with Dr. Lucas. Chronic stable medical conditions include atrial fibrillation being followed by Dr. Sahil Reyez not on anticoagulation. GERD, hypertension, hyperlipidemia, osteoarthritis, hypothyroid, restless leg syndrome, gastric sleeve. Patient has undergone left total knee arthroplasty. Postprocedure pain is well-controlled. No nausea vomiting. Sitting up in bed. No cardiac symptoms. December 01, 2023: Patient is slightly lightheaded this morning. Discussed active including getting up slowly. Did work with therapy. Some pain at the operative site. Placed on iron supplementation. Discussed. Patient told to hold her diuretic for a week. Check blood pressure daily. Medications reviewed Social history: Used to smoke in the past. Has anywhere from 2-3 drinks on the weekends. . Physical examination: VITAL SIGNS: 98, 69, 17, 130/72, 97% room air GENERAL: Sitting up more comfortable EYES: Pupils equal. Conjunctiva robi l. HEENT: External appearance of nose and ears normal, oral cavity grossly normal. NECK: JVD not raised; masses not palpable. HEART: First and second heart sounds are normal; no edema. LUNGS: Respiratory rate normal; clear to auscultation. ABDOMEN: Soft, nontender, liver spleen not palpable, no masses palpable. PSYCH: Alert and oriented x3; mood and affect robi l. MUSCULOSKELETAL:No Clubbing/cyanosis;muscles-grossly intact. Dressing over the left knee. Evidence of OA INVESTIGATIONS, reviewed in the clinical context: November 30: White count 8 hemoglobin 11.9 platelets 182 November 11, 2023: White count 9.3 hemoglobin 13.2 platelets 288 sodium 141 potassium 3.8 BUN 26.4 creatinine 1 Assessment plan: -Left total knee arthroplasty Aspirin 325 twice daily for DVT prophylaxis. Pain controlled. Received IV cefazolin for infection prophylaxis -Paroxysmal atrial fibrillation, currently in sinus rhythm Flecainide 25 mg every 12. Toprol-XL 50 mg a day -Acute postprocedure blood loss anemia expected from surgery Ferrous sulfate 325 mg a day -Hypothyroid Levothyroxine 125 mcg a day -GERD Prilosec 20 mg nightly -Essential hypertension Toprol-XL 50 mg a day. Hydrochlorothiazide-to be held for 1 week -Chronic insomnia Elavil 50 mg nightly -Restless leg syndrome Requip 0.25 mg twice daily -Primary osteoarthritis Tylenol as needed -Obesity BMI 34.4 Weight loss measures Care discussed the patient. Questions answered. Hold hydrochlorothiazide for a week. Thank Dr. Klein Past Medical History Past Medical History: Atrial Fibrillation, GERD/Reflux, Hyperlipidemia, Hypertension, Osteoarthritis (OA), Thyroid Disorder Additional Past Medical History / Comment(s): palpitations and runs of a fib - no a fib since metoprolol & flecainide, insomnia, RLS History of Any Multi-Drug Resistant Organisms: None Reported Past Surgical History: Bariatric Surgery, Section, Hernia Repair, Hysterectomy, Joint Replacement Additional Past Surgical History / Comment(s): GASTRIC SLEEVE, RT TOTAL KNEE, Rt total hip, bilat. cataract removed, EGD/COLONOSCOPY, hiatal hernia repair, unsuccessful cardiac ablation, loop recorder Past Anesthesia/Blood Transfusion Reactions: No Reported Reaction Additional Past Anesthesia/Blood Transfusion Reaction / Comm: no blood tx Past Psychological History: No Psychological Hx Reported Additional Psychological History / Comment(s): Takes amitriptyline for sleep. Smoking Status: Former smoker Past Alcohol Use History: Occasional Additional Past Alcohol Use History / Comment(s): SMOKED 15 YEARS, 1/2 PPD, QUIT 1997. 5 drinks/week Past Drug Use History: None Reported
== END 2023-12-01 15:04 | disposition home health service (06) ==
LOC: OR 05:43 → 4SSUR 08:36 → OR 12-01 15:04
PROVIDERS: ATTEND Orthopaedic Surgery
DX: M17.12 Unilateral primary osteoarthritis, left knee (principal); D62 Acute posthemorrhagic anemia; E03.9 Hypothyroidism, unspecified; E66.9 Obesity, unspecified; E78.5 Hyperlipidemia, unspecified; F51.04 Psychophysiologic insomnia; G25.81 Restless legs syndrome; G89.18 Other acute postprocedural pain; I10 Essential (primary) hypertension; I48.0 Paroxysmal atrial fibrillation; F10.90 Alcohol use, unspecified, uncomplicated; K21.9 Gastro-esophageal reflux disease without esophagitis; Z68.34 Body mass index [BMI] 34.0-34.9, adult; Z79.82 Long term (current) use of aspirin; Z79.890 Hormone replacement therapy; Z87.891 Personal history of nicotine dependence; Z88.1 Allergy status to other antibiotic agents; Z79.899 Other long term (current) drug therapy
CPT/HCPCS: 97161; 64999; 64448; 85025; 73560; 27447; C1713; C1776; C1751; J2250; J1100; J0690 ×3; J2405; J3010; J2795; J2704; J1170; J2371